=== PATIENT | female | born 2000 | race Caucasian/White ===

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

== ENCOUNTER 2022-05-26 00:05 | Inpatient (IN) | payer MEDICAID ==
[~2022-05-26] VITALS: Ht 157.5 cm; Wt 68.0 kg
[2022-05-26] VITALS (7 sets, daily range): BP systolic 104–111; BP diastolic 55–70
[2022-05-26] MEDS ORDERED: ONDANSETRON ODT 4 MG TAB PO PRN (00:30)
[2022-05-26] MEDS ORDERED: WITCH HAZEL-GLYCERIN PAD TOP PRN (00:30)
[2022-05-26] MEDS ORDERED: DERMOPLAST 60ML BOTTLE TOP PRN (00:30)
[2022-05-26] MEDS ORDERED: LACTATED RINGER'S 1,000 ML IV SCH (00:30)
[2022-05-26] MEDS ORDERED: LACT. RINGERS/OXYTOCIN 20UNITS 500 ML IV ONE (00:30)
[2022-05-26] MEDS ORDERED: ACETAMINOPHEN 325 MG TAB PO PRN (00:30)
[2022-05-26] MEDS ORDERED: PHISODERM TOP SOLN 240ML BTL TOP PRN (00:30)
[2022-05-26 01:20] LABS: Basophils # (auto) 0 10 ^3/uL (0-0.2); Eosinophils # (auto) 0.1 10 ^3/uL (0-0.8); Monocytes # (auto) 0.5 10 ^3/uL (0-1.3); Monocytes % (auto) 3.7 % (0.0-12.0); Nucleated Red Blood Cells % 0.1 %
[2022-05-26 01:21] LABS: Basophils % (auto) 0.2 % (0.0-2.0); Eosinophils % (auto) 0.6 % (0.0-7.0); Hematocrit 25.2 % (36.0-46.0); Hemoglobin 7.9 g/dL (12.2-16.2); Lymphocytes # (auto) 1.4 10 ^3/uL (0.4-5.4); Lymphocytes % (auto) 9.8 % (10.0-50.0); Mean Corpuscular Hemoglobin 21.7 pg (28.0-32.0); Mean Corpuscular Hgb Conc. 31.4 g/dL (32.0-36.0); Mean Corpuscular Volume 69.1 fL (80.0-100.0); Neutrophils # (auto) 12.4 10 ^3/uL (1.6-8.6); Neutrophils % (auto) 85.7 % (37.0-80.0); Red Blood Cells 3.65 10^6/uL (4.0-5.20); Red Cell Distribution Width 16.4 % (11.8-14.3); White Blood Cell 14.4 10^3/uL (4.4-10.8)
[2022-05-26 01:26] LABS: BUN/Creatinine Ratio 12.1; Calcium 7.4 mg/dL (8.5-10.1); Potassium 4.1 mmol/L (3.5-5.1)
[2022-05-26 01:28] LABS: Bilirubin, Total 0.2 mg/dL (0.2-1.0); Total Protein 5.1 g/dL (6.4-8.2)
[2022-05-26 01:33] LABS: INR 0.92 (0.9-1.15); Partial Thromboplastin Time 25.4 sec (24.6-33.4)
[2022-05-26 03:13] LABS: Urine Bacteria NONE SEEN /hpf (None Seen); Urine Blood 3+ /uL (Negative); Urine Mucus FEW (None Seen); Urine WBC 19 /hpf (0 - 5)
[2022-05-26 03:14] LABS: Alcohol, Urine < 3.0 mg/dL (0-10); Amphetamine Screen, Urine POSITIVE (NEGATIVE); Barbiturate Scree,Urine NEGATIVE (NEGATIVE); Benzodiazephine Screen, Urine NEGATIVE (NEGATIVE); Cannabinoid Screen, Urine POSITIVE (NEGATIVE); Cocaine Screen, Urine NEGATIVE (NEGATIVE); Opiate Scree,Urine NEGATIVE (NEGATIVE); Phencyclidine Screen, Urine NEGATIVE (NEGATIVE)
[2022-05-26] MEDS ORDERED: RHO (D) IMMUNE GLOBULIN 300 MCG INJ IM ONE (03:45)
[2022-05-26] MEDS ORDERED: IBUPROFEN 800 MG TAB PO SCH (06:00)
[2022-05-26] MEDS: FERROUS SULFATE 325mg EC TAB PO SCH ×2 (09:02→18:42)
[2022-05-26] MEDS ORDERED: IBUPROFEN 800 MG TAB PO PRN (10:15)
[2022-05-26] MEDS ORDERED: PREN-96 PO (10:47)
[2022-05-26] MEDS ORDERED: OXYTOCIN 10UNIT/ML 1ML VIAL IV ONE (13:10)
[2022-05-26] MEDS ORDERED: DOCUSATE SOD 100 MG CAP PO SCH (22:00)
[2022-05-27 03:00] VITALS: BP 99/57
[2022-05-27 06:45] VITALS: BP 100/65
[2022-05-27 07:06] LABS: RPR Non Reactive (Non Reactive)
[2022-05-27 08:06] LABS: Rubella Antibodies, IgG <0.90 index (Immune >0.99)
[2022-05-27] MEDS: FERROUS SULFATE 325mg EC TAB PO SCH (09:57)
[2022-05-27 11:15] VITALS: BP 102/54
[2022-05-27] MEDS ORDERED: TETANUS-DIPTH-ACEL PERTUSSIS 0.5ML SYR Tdap IM ONE (11:30)
== END 2022-05-27 13:40 | disposition home or self-care (01) | DRG 561 ==
LOC: LDRP 00:05
PROVIDERS: ADMIT Obstetrics & Gynecology; ATTEND Obstetrics & Gynecology
PROC: 10E0XZZ Delivery of Products of Conception, External Approach (ICD-10-PCS; principal; 2022-05-26)
PROC: 3E0234Z Introduction of Serum, Toxoid and Vaccine into Muscle, Percutaneous Approach (ICD-10-PCS; 2022-05-26)
DX: Z39.0 Encounter for care and examination of mother immediately after delivery (principal); Z20.822 Contact with and (suspected) exposure to COVID-19; Z29.13 Encounter for prophylactic Rho(D) immune globulin; Z67.41 Type O blood, Rh negative
CPT/HCPCS: 36415; 59414; 80053; 80307; 81001; 82948; 85025; 85610; 85730; 86592; 86703; 86762; 86850; 86900; 86901; 87340; 87426; 90384; 94760; 94762; 96365; 96366; 96372; 96374; G0378

== ENCOUNTER 2023-01-25 21:22 | Inpatient (IN) | payer MEDICAID ==
[~2023-01-25] VITALS: Ht 157.5 cm; Wt 69.0 kg
[~2023-01-25 21:22] MED LIST: PREN-96 PO
[2023-01-26] MEDS ORDERED: ONDANSETRON ODT 4 MG TAB PO ONE (02:15)
[2023-01-26] MEDS ORDERED: HYDROcodone-ACET 5/325MG TAB PO ONE (02:15)
[2023-01-26] MEDS ORDERED: LIDOCAINE 1% HCL (LOCAL ANESTH.) INJ 20ML MDV ID ONE (02:30)
[2023-01-26] MEDS ORDERED: MUPI2OIN2 EX (02:50)
[2023-01-26] MEDS ORDERED: ZOFR4T PO (02:50)
[2023-01-26] MEDS ORDERED: CEPH500C PO (02:50)
[2023-01-26] MEDS ORDERED: HYDR-4902 PO (02:50)
[2023-01-26] MEDS ORDERED: MORPHINE SULFATE INJ 2 MG/ml SYRG IM ONE (03:30)
[2023-01-26] MEDS ORDERED: ONDANSETRON HCL 4 MG/2 ML VIAL IM ONE (03:30)
[2023-01-26 04:30] LABS: Basophils # (auto) 0 10 ^3/uL (0-0.2); Basophils % (auto) 0.2 % (0.0-2.0); Eosinophils # (auto) 0 10 ^3/uL (0-0.8); Monocytes # (auto) 0.3 10 ^3/uL (0-1.3); Red Cell Distribution Width 18.8 % (11.8-14.3)
[2023-01-26 04:34] LABS: Hematocrit 36.3 % (36.0-46.0); Hemoglobin 10.9 g/dL (12.2-16.2); Lymphocytes # (auto) 1.2 10 ^3/uL (0.4-5.4); Lymphocytes % (auto) 9.9 % (10.0-50.0); Mean Corpuscular Hemoglobin 19.4 pg (28.0-32.0); Mean Corpuscular Hgb Conc. 29.9 g/dL (32.0-36.0); Mean Corpuscular Volume 64.9 fL (80.0-100.0); Monocytes % (auto) 2.8 % (0.0-12.0); Neutrophils # (auto) 10.9 10 ^3/uL (1.6-8.6); Neutrophils % (auto) 87.1 % (37.0-80.0); Red Blood Cells 5.59 10^6/uL (4.0-5.20); White Blood Cell 12.5 10^3/uL (4.4-10.8)
[2023-01-26 04:56] LABS: Alanine Aminotransferase 19 U/L (7-40); Albumin 5.2 g/dL (3.2-4.8); Alkaline Phosphatase 50 U/L (46-116); Amylase 409 U/L (30-118); Anion Gap 16.3 (5-15); Aspartate Aminotransferase 19 U/L (13-40); BUN/Creatinine Ratio 11.3 (10.0-20.0); Bilirubin, Total 0.4 mg/dL (0.2-1.0); Blood Urea Nitrogen 9 mg/dL (9-23); Calcium 9.3 mg/dL (8.7-10.4); Carbon Dioxide 13.7 mmol/L (20-30); Chloride 114 mmol/L (98-107); Glucose 122 mg/dL (74-106); Lipase 248 U/L (12-53); Potassium 3.6 mmol/L (3.5-5.1); Sodium 144 mmol/L (136-145); Total Protein 7.9 g/dL (5.7-8.2)
[2023-01-26 05:06] LABS: Urine Bacteria FEW /hpf (None Seen); Urine Blood 1+ /uL (Negative); Urine Clarity Clear (Clear); Urine Color Yellow (Yellow); Urine Mucus FEW (None Seen); Urine Protein, UAD 1+ (Negative); Urine Specific Gravity 1.028 (1.001-1.035); Urine Urobilinogen Normal (Negative); Urine WBC 4 /hpf (0 - 5); Urine pH 5.5 (5.0-8.0)
[2023-01-26] MEDS ORDERED: SODIUM CHLORIDE 0.9% 1,000 ML IV ONE (05:15)
[2023-01-26] MEDS ORDERED: HYDROmorphone HCL 2 MG/ML VL/or syr IV ONE (05:15)
[2023-01-26] MEDS ORDERED: PROMETHAZINE HCL 25 MG/ML 1ML IV ONE (05:15)
[2023-01-26] MEDS ORDERED: ACETAMINOPHEN 325 MG TAB PO PRN (06:45)
[2023-01-26] MEDS ORDERED: SODIUM CHLORIDE 0.9% 1,000 ML IV SCH (06:45)
[2023-01-26 08:09] LABS: Hypochromia Marked; Platelet Estimate Increased
[2023-01-26] MEDS: cefTRIAXone 1GM/50ML D5W 50 ML IV SCH (09:17)
[2023-01-26 09:27] VITALS: BP 147/75; PULSE 103; RESP 24; TEMP 97.5; O2SAT 98
[2023-01-26] MEDS: MORPHINE SULFATE INJ 2 MG/ml SYRG IV PRN (09:53)
[2023-01-26] MEDS: PANTOPRAZOLE 40 MG/10 ML VIAL INJ IV SCH (10:03)
[2023-01-26] MEDS: ONDANSETRON HCL 4 MG/2 ML VIAL IV PRN (12:23)
[2023-01-26 13:00] VITALS: BP 110/65; PULSE 70; RESP 18; TEMP 98.3; O2SAT 99
[2023-01-26] MEDS: HYDROcodone-ACET 5/325MG TAB PO PRN (14:19)
[2023-01-26 16:34] VITALS: BP 102/47; PULSE 75; RESP 18; TEMP 98.4; O2SAT 100
[2023-01-26 18:45] VITALS: RESP 18; O2SAT 96
[2023-01-26 20:13] LABS: Amphetamine Screen, Urine Neg (NEGATIVE); Barbiturate Scree,Urine Neg (NEGATIVE); Benzodiazephine Screen, Urine Neg (NEGATIVE); Cannabinoid Screen, Urine Pos (NEGATIVE); Cocaine Screen, Urine Neg (NEGATIVE); Opiate Scree,Urine Neg (NEGATIVE); Phencyclidine Screen, Urine Neg (NEGATIVE)
[2023-01-26] MEDS: D5W/SOD CHL 0.45% 1,000 ML IV SCH (20:28)
[2023-01-26 22:00] VITALS: BP 114/76; PULSE 79; RESP 19; TEMP 99.2; O2SAT 100
[2023-01-26 23:08] LABS: INR 1.11 (0.9-1.15); Partial Thromboplastin Time 26.9 SEC (24.5-34.5); Prothrombin Time 11.6 sec (9.3-11.8)
[2023-01-27 03:07] LABS: % Iron Saturation 14.2 % (15-50)
[2023-01-27] MEDS: ONDANSETRON HCL 4 MG/2 ML VIAL IV PRN (04:39)
[2023-01-27] MEDS: MORPHINE SULFATE INJ 2 MG/ml SYRG IV PRN ×2 (04:49→16:04)
[2023-01-27 05:00] VITALS: BP 133/68; PULSE 88; RESP 20; TEMP 97.3; O2SAT 98
[2023-01-27] MEDS: HYDROcodone-ACET 5/325MG TAB PO PRN ×2 (06:09→12:08)
[2023-01-27 07:01] LABS: Alanine Aminotransferase 19 U/L (7-40); Albumin 4.4 g/dL (3.2-4.8); Alkaline Phosphatase 46 U/L (46-116); Aspartate Aminotransferase 24 U/L (13-40); BUN/Creatinine Ratio 12.8 (10.0-20.0); Bilirubin, Total 0.6 mg/dL (0.2-1.0); Blood Urea Nitrogen 10 mg/dL (9-23); Chloride 111 mmol/L (98-107); Eosinophils # (auto) 0 10 ^3/uL (0-0.8); Eosinophils % (auto) 0.4 % (0.0-7.0); Glucose 100 mg/dL (74-106); Hemoglobin 9.8 g/dL (12.2-16.2); Lipase 41 U/L (12-53); Magnesium 1.8 mg/dL (1.6-2.6); Monocytes # (auto) 0.6 10 ^3/uL (0-1.3); Neutrophils # (auto) 5.3 10 ^3/uL (1.6-8.6); Potassium 3.1 mmol/L (3.5-5.1); Red Cell Distribution Width 18.4 % (11.8-14.3); Sodium 140 mmol/L (136-145); Total Protein 6.7 g/dL (5.7-8.2)
[2023-01-27 07:04] LABS: Basophils # (auto) 0.1 10 ^3/uL (0-0.2); Basophils % (auto) 0.7 % (0.0-2.0); Hematocrit 31.5 % (36.0-46.0); Lymphocytes # (auto) 2.5 10 ^3/uL (0.4-5.4); Lymphocytes % (auto) 29.4 % (10.0-50.0); Mean Corpuscular Hemoglobin 20.2 pg (28.0-32.0); Monocytes % (auto) 7.2 % (0.0-12.0); Neutrophils % (auto) 62.3 % (37.0-80.0); Red Blood Cells 4.84 10^6/uL (4.0-5.20); White Blood Cell 8.5 10^3/uL (4.4-10.8)
[2023-01-27] MEDS: PANTOPRAZOLE 40 MG/10 ML VIAL INJ IV SCH (09:25)
[2023-01-27] MEDS: cefTRIAXone 1GM/50ML D5W 50 ML IV SCH (09:25)
[2023-01-27 09:40] VITALS: BP 116/73; PULSE 69; RESP 14; TEMP 98.6; O2SAT 98
[2023-01-27] MEDS ORDERED: FERROUS SULFATE 325mg EC TAB PO ONE (09:45)
[2023-01-27] MEDS ORDERED: POTASSIUM CHL 20 Meq TABLET PO ONE (09:45)
[2023-01-27] MEDS ORDERED: PROMETHAZINE HCL 25 MG/ML 1ML IV PRN (10:45)
[2023-01-27 12:27] LABS: Platelet Estimate Adequate
[2023-01-27 12:28] LABS: Hypochromia Marked
[2023-01-27 13:00] VITALS: BP 114/63; PULSE 90; RESP 16; TEMP 98.6; O2SAT 99
[2023-01-27 16:32] VITALS: BP 94/48; PULSE 65; RESP 20; TEMP 98.9; O2SAT 99
[2023-01-27] MEDS: FERROUS SULFATE 325mg EC TAB PO SCH (17:52)
[2023-01-27] MEDS: D5W/SOD CHL 0.45% 1,000 ML IV SCH (21:22)
[2023-01-27 22:00] VITALS: BP 105/52; PULSE 77; RESP 18; TEMP 98.2; O2SAT 100
[2023-01-28 05:13] VITALS: BP 126/78; PULSE 76; RESP 16; TEMP 98.3; O2SAT 100
[2023-01-28 05:54] LABS: Basophils # (auto) 0 10 ^3/uL (0-0.2); Basophils % (auto) 0.8 % (0.0-2.0); Eosinophils # (auto) 0.1 10 ^3/uL (0-0.8); Eosinophils % (auto) 1.6 % (0.0-7.0); Hematocrit 31.1 % (36.0-46.0); Hemoglobin 9.8 g/dL (12.2-16.2); Lymphocytes # (auto) 2.4 10 ^3/uL (0.4-5.4); Lymphocytes % (auto) 43.7 % (10.0-50.0); Mean Corpuscular Hemoglobin 20.4 pg (28.0-32.0); Mean Corpuscular Hgb Conc. 31.4 g/dL (32.0-36.0); Monocytes # (auto) 0.4 10 ^3/uL (0-1.3); Monocytes % (auto) 7.3 % (0.0-12.0); Neutrophils # (auto) 2.5 10 ^3/uL (1.6-8.6); Neutrophils % (auto) 46.6 % (37.0-80.0); Nucleated Red Blood Cells % 0.1 %; Red Blood Cells 4.78 10^6/uL (4.0-5.20); Red Cell Distribution Width 18.4 % (11.8-14.3); White Blood Cell 5.4 10^3/uL (4.4-10.8)
[2023-01-28 06:18] LABS: Alanine Aminotransferase 28 U/L (7-40); Albumin 4.1 g/dL (3.2-4.8); Alkaline Phosphatase 40 U/L (46-116); Anion Gap 7.7 (5-15); Aspartate Aminotransferase 22 U/L (13-40); BUN/Creatinine Ratio 10.4 (10.0-20.0); Blood Urea Nitrogen 8 mg/dL (9-23); Carbon Dioxide 22.3 mmol/L (20-30); Chloride 111 mmol/L (98-107); Glucose 86 mg/dL (74-106); Magnesium 1.9 mg/dL (1.6-2.6); Potassium 3.8 mmol/L (3.5-5.1); Sodium 141 mmol/L (136-145)
[2023-01-28 06:19] LABS: Bilirubin, Total 0.6 mg/dL (0.2-1.0); Total Protein 6.3 g/dL (5.7-8.2)
[2023-01-28 06:38] LABS: Lipase 37 U/L (12-53)
[2023-01-28 08:00] VITALS: PULSE 62; RESP 18; O2SAT 96
[2023-01-28] MEDS: cefTRIAXone 1GM/50ML D5W 50 ML IV SCH (08:21)
[2023-01-28] MEDS: MORPHINE SULFATE INJ 2 MG/ml SYRG IV PRN (08:21)
[2023-01-28] MEDS: FERROUS SULFATE 325mg EC TAB PO SCH ×2 (08:21→18:00)
[2023-01-28] MEDS: PANTOPRAZOLE 40 MG/10 ML VIAL INJ IV SCH (08:30)
[2023-01-28 08:40] VITALS: BP 101/61; PULSE 62; RESP 18; TEMP 98.3; O2SAT 96
[2023-01-28] MEDS: D5W/SOD CHL 0.45% 1,000 ML IV SCH (09:15)
[2023-01-28 12:30] VITALS: BP 124/66; PULSE 70; RESP 17; TEMP 98.6; O2SAT 100
[2023-01-28 16:42] VITALS: BP 104/57; PULSE 64; RESP 18; TEMP 98.3; O2SAT 100
== END 2023-01-28 18:13 | disposition home or self-care (01) | DRG 282 ==
LOC: EDBD 21:22 → ER 21:25 → OVERFLOW 01-26 06:38 → WEST WING 01-26 09:32
PROVIDERS: ADMIT Internal Medicine Geriatric Medicine; ATTEND Student in an Organized Health Care Education/Training Program
PROC: 0HQ1XZZ Repair Face Skin, External Approach (ICD-10-PCS; principal; 2023-01-26)
DX: K85.90 Acute pancreatitis without necrosis or infection, unspecified (principal); S09.90XA Unspecified injury of head, initial encounter; D50.9 Iron deficiency anemia, unspecified; F10.10 Alcohol abuse, uncomplicated; F43.10 Post-traumatic stress disorder, unspecified; K80.20 Calculus of gallbladder without cholecystitis without obstruction; S01.112A Laceration without foreign body of left eyelid and periocular area, initial encounter; W18.39XA Other fall on same level, initial encounter; Z20.822 Contact with and (suspected) exposure to COVID-19; R74.8 Abnormal levels of other serum enzymes; S05.12XA Contusion of eyeball and orbital tissues, left eye, initial encounter; Z82.49 Family history of ischemic heart disease and other diseases of the circulatory system; Y93.89 Activity, other specified; Y92.89 Other specified places as the place of occurrence of the external cause; Y99.8 Other external cause status; Z80.8 Family history of malignant neoplasm of other organs or systems; Z81.8 Family history of other mental and behavioral disorders; Z88.8 Allergy status to other drugs, medicaments and biological substances
CPT/HCPCS: 12013; 36415; 70450; 70486; 74176; 74177; 74181; 76705; 78226; 80053; 80307; 80320; 81001; 82150; 82728; 83540; 83550; 83605; 83615; 83690; 83735; 84702; 85025; 85045; 85610; 85730; 87081; 96361; 96372; 96374; 96375; C9113; G0378; J0696; J2001; J2405; Q0162

== ENCOUNTER 2023-02-18 15:37 | Emergency (ER) | payer MEDICAID ==
[~2023-02-18] VITALS: Ht 157.5 cm; Wt 64.7 kg
[2023-02-18 16:39] LABS: Basophils # (auto) 0.1 10 ^3/uL (0-0.2); Basophils % (auto) 0.7 % (0.0-2.0); Eosinophils # (auto) 0.1 10 ^3/uL (0-0.8); Eosinophils % (auto) 0.7 % (0.0-7.0); Hematocrit 37.6 % (36.0-46.0); Hemoglobin 11.8 g/dL (12.2-16.2); Lymphocytes # (auto) 2.7 10 ^3/uL (0.4-5.4); Mean Corpuscular Hemoglobin 21.2 pg (28.0-32.0); Mean Corpuscular Hgb Conc. 31.5 g/dL (32.0-36.0); Mean Corpuscular Volume 67.2 fL (80.0-100.0); Monocytes # (auto) 0.7 10 ^3/uL (0-1.3); Monocytes % (auto) 7.3 % (0.0-12.0); Neutrophils # (auto) 5.8 10 ^3/uL (1.6-8.6); Neutrophils % (auto) 62.3 % (37.0-80.0); Nucleated Red Blood Cells % 0.1 %; White Blood Cell 9.3 10^3/uL (4.4-10.8)
[2023-02-18 16:41] LABS: Red Cell Distribution Width 21.1 % (11.8-14.3)
[2023-02-18 16:52] LABS: Alanine Aminotransferase 16 U/L (7-40); Albumin 5.1 g/dL (3.2-4.8); Alkaline Phosphatase 57 U/L (46-116); Amylase 62 U/L (30-118); Anion Gap 9 (5-15); Aspartate Aminotransferase 13 U/L (13-40); BUN/Creatinine Ratio 7.3 (10.0-20.0); Blood Urea Nitrogen 6 mg/dL (9-23); Calcium 9.8 mg/dL (8.7-10.4); Carbon Dioxide 21 mmol/L (20-30); Chloride 109 mmol/L (98-107); Glucose 88 mg/dL (74-106); Lipase 43 U/L (12-53); Potassium 3.9 mmol/L (3.5-5.1); Sodium 139 mmol/L (136-145)
[2023-02-18 16:53] LABS: Bilirubin, Total 0.5 mg/dL (0.2-1.0); Total Protein 7.7 g/dL (5.7-8.2)
[2023-02-18] MEDS ORDERED: MORPHINE SULFATE 4 MG/ML SYR/VIAL IV ONE (18:00)
[2023-02-18] MEDS ORDERED: ONDANSETRON HCL 4 MG/2 ML VIAL IV ONE (18:00)
[2023-02-18 18:05] LABS: Anisocytosis Slight; Platelet Estimate Adequate
[2023-02-18 18:06] LABS: Hypochromia Moderate
[2023-02-18 18:50] VITALS: TEMP 97.8
[2023-02-18 19:01] LABS: Urine Bacteria FEW /hpf (None Seen); Urine Blood 3+ /uL (Negative); Urine Clarity HAZY (Clear); Urine Color Yellow (Yellow); Urine Mucus FEW (None Seen); Urine Protein, UAD 1+ (Negative); Urine Specific Gravity 1.027 (1.001-1.035); Urine Urobilinogen Normal (Negative); Urine WBC 22 /hpf (0 - 5); Urine pH 6.5 (5.0-8.0)
[2023-02-18 19:17] VITALS: BP 146/94; PULSE 91; RESP 17; O2SAT 98
[2023-02-18] MEDS ORDERED: NITR-87 PO (20:30)
[2023-02-18] MEDS ORDERED: HYDR-4902 PO (20:30)
[2023-02-18] MEDS ORDERED: PANT40TA2 PO (20:30)
== END 2023-02-18 21:01 | disposition home or self-care (01) ==
LOC: ER 15:37
DX: N39.0 Urinary tract infection, site not specified (principal); F12.10 Cannabis abuse, uncomplicated
CPT/HCPCS: 36415; 74176; 80053; 81001; 82150; 83690; 85025; 96374; 96375; 99285; J2270; J2405

== ENCOUNTER 2023-02-19 14:08 | Emergency (ER) | payer MEDICAID ==
[~2023-02-19] VITALS: Ht 157.5 cm; Wt 64.1 kg
[~2023-02-19 14:08] MED LIST changes: +HYDR-4902 PO; +NITR-87 PO; +PANT40TA2 PO
[2023-02-19 15:36] LABS: Eosinophils # (auto) 0 10 ^3/uL (0-0.8); Hemoglobin 11.8 g/dL (12.2-16.2)
[2023-02-19 15:37] LABS: Basophils # (auto) 0 10 ^3/uL (0-0.2); Basophils % (auto) 0.4 % (0.0-2.0); Eosinophils % (auto) 0.3 % (0.0-7.0); Hematocrit 37.6 % (36.0-46.0); Lymphocytes # (auto) 2.4 10 ^3/uL (0.4-5.4); Lymphocytes % (auto) 23.6 % (10.0-50.0); Mean Corpuscular Hemoglobin 21.4 pg (28.0-32.0); Mean Corpuscular Hgb Conc. 31.4 g/dL (32.0-36.0); Mean Corpuscular Volume 68.2 fL (80.0-100.0); Monocytes # (auto) 0.6 10 ^3/uL (0-1.3); Monocytes % (auto) 5.5 % (0.0-12.0); Neutrophils % (auto) 70.2 % (37.0-80.0); Nucleated Red Blood Cells % 0.1 %; Red Blood Cells 5.52 10^6/uL (4.0-5.20)
[2023-02-19 15:51] LABS: Red Cell Distribution Width 21.3 % (11.8-14.3)
[2023-02-19 15:56] LABS: Urine Bacteria NONE SEEN /hpf (None Seen); Urine Blood 2+ /uL (Negative); Urine Clarity Clear (Clear); Urine Color Yellow (Yellow); Urine Mucus FEW (None Seen); Urine Protein, UAD 1+ (Negative); Urine Specific Gravity 1.026 (1.001-1.035); Urine WBC 11 /hpf (0 - 5)
[2023-02-19 16:06] LABS: Alanine Aminotransferase 16 U/L (7-40); Albumin 5.3 g/dL (3.2-4.8); Alkaline Phosphatase 57 U/L (46-116); Anion Gap 9 (5-15); Aspartate Aminotransferase 15 U/L (13-40); BUN/Creatinine Ratio 7.3 (10.0-20.0); Bilirubin, Total 0.6 mg/dL (0.2-1.0); Blood Urea Nitrogen 6 mg/dL (9-23); Calcium 9.8 mg/dL (8.7-10.4); Carbon Dioxide 19 mmol/L (20-30); Chloride 110 mmol/L (98-107); Glucose 87 mg/dL (74-106); Potassium 3.8 mmol/L (3.5-5.1); Sodium 138 mmol/L (136-145)
[2023-02-19 16:51] LABS: Platelet Estimate Adequate
[2023-02-19 16:52] LABS: Anisocytosis Slight; Hypochromia Moderate; Ovalocytes FEW
[2023-02-19 19:50] VITALS: BP 148/84; TEMP 98.5
[2023-02-19] MEDS ORDERED: HYDROcodone-ACET 10/325MG TAB PO ONE (20:45)
[2023-02-19] MEDS ORDERED: ONDANSETRON ODT 4 MG TAB PO ONE (20:45)
[2023-02-19 20:51] VITALS: PULSE 92; RESP 16; O2SAT 100
== END 2023-02-19 21:10 | disposition home or self-care (01) ==
LOC: ER 14:21
DX: G89.4 Chronic pain syndrome (principal); Z79.899 Other long term (current) drug therapy
CPT/HCPCS: 36415; 80053; 81001; 85025; 99283; Q0162

== ENCOUNTER 2023-02-26 09:52 | Emergency (ER) | payer MEDICAID | END 2023-02-27 02:12 | disposition left against medical advice (07) | LOC: ER 09:52 | DX: R10.9 Unspecified abdominal pain (principal); Z53.21 Procedure and treatment not carried out due to patient leaving prior to being seen by health care provider ==